=== PATIENT | female | born 1990 | race Caucasian/White ===

== ENCOUNTER 2020-07-26 08:21 | Inpatient (IN) ==
[2020-07-26] MEDS ORDERED: OXYTOCIN 30 UNITS/500 ML BAG IV PRN ×2 (09:35→22:31)
--- NOTE | 2020-07-26 09:38 | History & Physical Report ---
Date of Service July 26, 2020 Assessment & Plan (1) Encounter for supervision in primigravida, antepartum: Admit to L&D. EFM/toco. Labs, Covid swab per protocol. OK for pitocin if needed. OK for epidural when she desires. History of Present Illness Chief Complaint: labor Primary Care Provider: Stephane Marlow MD 29yo @ 40 4/7, contractions increased overnight. No ROM. Scant blood in vaginal mucus. +FM. H/o ectopic . Allergies Allergy/AdvReac Type Severity Reaction Status Date / Time latex Allergy Unknown Unknown Verified 07/26/20 08:35 Home Medications Medication Instructions Recorded Confirmed Type lactobacillus combination no.4 0 mmu cells PO DAILY 07/12/19 07/26/20 History [Probiotic] prenat.vits,vijaya,[id number] 1 tab PO DAILY 09/12/19 07/26/20 History valacyclovir 1 gram tablet 2,000 mg PO BID 1 Days #12 tab 05/03/20 07/26/20 Rx loratadine 10 mg tablet 10 mg PO DAILY PRN #30 tab 06/13/20 07/26/20 Rx pantoprazole 40 mg tablet,delayed 40 mg PO DAILY PRN #30 tab 06/13/20 07/26/20 Rx release Patient History Medical History Ectopic 2019 Establishing care with new doctor, encounter for GERD (gastroesophageal reflux disease) Varicella vaccination Surgical History [id number] H/O oral surgery Tooth extraction History of back surgery Family History Mother Breast cancer Grandmother (Paternal) Crohn's disease Grandmother (Maternal) Diabetes Father Dyslipidemia Denies family history of Ovarian cancer Prostate cancer Myocardial infarction Colorectal cancer Social History (Updated 06/13/20 @ 10:16 by Jaspreet Marlow MD) Smoking Status: Never smoker Second Hand Exposure: No; Hx Alcohol Use: Yes Hx Substance Use: No Preferred Language: Setswana Visual Impairment: No Limitations Hearing Ability: Normal Beliefs That Will Affect Care: None marital status: marital status details: David Alcala II (29) [phone] Current Living Situation: Spouse Current Living Situation Comment: lives with spouse, no pets current occupational status: unemployed Feels Safe at Home: Yes Safety Concerns: Feels Safe At This Time Childhood Exposure to Second-Hand Smoke: No caffeine: No Dental Care, Regularly: Yes Physical Activity Frequency: 3-4 Times per Week Seatbelt Use: sometimes Sunscreen Use: Yes Assistive Devices: Glasses Review of Systems All systems reviewed & are unremarkable except as noted in HPI & below Physical Exam Physical Exam: SVE 6/90/0 FHT Cat 1 [place] Q 2-3 Constitutional: WD/WN, vitals as above Respiratory: normal respiratory effort, lungs clear to auscultation no respiratory distress Cardiovascular: Rate/Rhythm: regular rate and regular rhythm Gastrointestinal (Abdomen): Inspection/Auscultation: abdomen normal to inspection Percussion/Palpation: abdomen soft; abdomen nontender Gravid. No s/s chorio or abruption. Skin: no rashes, warm and dry Psychiatric: A+Ox3, euthymic affect Results & Data ([facility]) Vital Signs (Past 12 Hours) Vital Signs Temp Pulse Resp BP 07/26/20 08:33 36.6 C 18 07/26/20 08:27 66 116/67 Coding Level of Care Code None Diagnoses Encounter for supervision in primigravida, antepartum Z34.00
[2020-07-26] MEDS: LACTATED RINGER'S 1,000 ML IV PRN ×3 (09:55→15:30)
[2020-07-26] MEDS ORDERED: ePHEDrine sulfate 50 MG/ML AMP ONE (09:56)
[2020-07-26] MEDS ORDERED: BUPIVACAINE 0.25% 30 ML VIAL ONE ×2 (09:56→09:59)
[2020-07-26] MEDS ORDERED: SODIUM CHLORIDE 0.9% INJ 10 ML VIAL ONE (09:56)
[2020-07-26] MEDS ORDERED: fentaNYL 2MCG/ML ROPIVACAINE 1.25MG/ML 100 ML BAG EPI ONE (09:57)
[2020-07-26] MEDS ORDERED: fentaNYL citrate 100 MCG/2 ML VIAL ONE (09:57)
[2020-07-26 10:04] LABS: Hematocrit (blood only) 37.8 % (37-47); Mean Corpuscular Hemoglobin 30.2 pg (25-34); Mean Corpuscular Hgb Conc 34.4 g/dL (32-36); Mean Corpuscular Volume 87.9 fL (80-100); Mean Platelet Volume 10.2 fL (7.4-10.4); Platelet Count 136 K/uL (130-400); RDW Coefficient of Variation 13.3 % (11.5-14.5); RDW Standard Deviation 42.7 fL (36.4-46.3); White Blood Count 8.72 K/uL (4.8-10.8)
[2020-07-26] MEDS ORDERED: ONDANSETRON INJ 2 MG/ML 2 ML VIAL IV PRN (10:30)
[2020-07-26] MEDS ORDERED: NALOXONE HCL 0.4 MG/1 ML VIAL/CARP IV PRN (10:30)
[2020-07-26] MEDS ORDERED: diphenhydrAMINE 50 MG/ML VIAL IV PRN (10:30)
[2020-07-26] MEDS ORDERED: NALOXONE HCL 1 MG in SODIUM CHLORIDE 0.9% 1000ML 1,000 ML IV PRN (10:30)
[2020-07-26] MEDS ORDERED: fentaNYL 2MCG/ML ROPIVACAINE 1.25MG/ML 100 ML BAG EPI PRN (10:30)
[2020-07-26] MEDS ORDERED: ePHEDrine sulfate 50 MG/ML AMP IV PRN (10:30)
--- NOTE | 2020-07-26 10:35 | Anesthesiology Consultation ---
Date of Service July 26, 2020 Assessment & Plan Chart Review Chart Review: Patient NOT seen in Pre Admission Testing and Acceptable Risk for Labor Epidural Consults Requested none ASA ASA2 Proposed Anesthesia Anesthesia Type: Labor Epidural and CSE Risk / Benefits Reviewed With: PT / POA / Parent / Guardian, Accepts Plan and Informed Consent Obtained History Height/Weight Height: 5 ft 4 in Weight: 74.843 kg Allergies Allergy/AdvReac Type Severity Reaction Status Date / Time latex Allergy Unknown Unknown Verified 07/26/20 08:35 Medications Home Medications Medication Instructions Recorded Confirmed Last Taken lactobacillus combination no.4 0 mmu cells PO DAILY 07/12/19 07/26/20 07/25/20 07:00 [Probiotic] prenat.vits,vijaya,[id number]-hlpra 1 tab PO DAILY 09/12/19 07/26/20 07/25/20 07:00 valacyclovir 1 gram tablet 2,000 mg PO BID 1 Days #12 tab 05/03/20 07/26/20 07/25/20 loratadine 10 mg tablet 10 mg PO DAILY PRN #30 tab 06/13/20 07/26/20 07/25/20 07:00 pantoprazole 40 mg tablet,delayed 40 mg PO DAILY PRN #30 tab 06/13/20 07/26/20 07/25/20 07:00 release Active Medications Generic Name Dose Route Start Last Admin Trade Name Freq PRN Reason Stop Dose Admin Lactated Ringer's 1,000 mls @ 125 mls/hr 07/26/20 09:35 07/26/20 09:55 Lr IV 07/28/20 09:34 999 mls/hr .Q8H PRN Administration L&D Protocol Protocol NPO Date Last Intake of Fluids: 07/26/20 Time Last Intake of Fluids: 08:30 Date Last Intake of Solids: 07/25/20 Time Last Intake of Solids: 19:00 Past Medical History Medical History Ectopic 2019 Establishing care with new doctor, encounter for GERD (gastroesophageal reflux disease) Varicella vaccination Exercise / Class Metabolic Activity II 4-5 Yardwork/Stairs/Walk up hill Past Family History Family History Mother Breast cancer Grandmother (Paternal) Crohn's disease Grandmother (Maternal) Diabetes Father Dyslipidemia Denies family history of Ovarian cancer Prostate cancer Myocardial infarction Colorectal cancer Past Surgical History Surgical History [id number] [place] H/O oral surgery Tooth extraction History of back surgery Past Anesthesia History No Hx of Anesthesia Complications and No Family Hx of Anesthesia Complications History of PONV No Hx of PONV and No Hx of Motion Sickness Social History Smoking Status: Never smoker Hx Alcohol Use: Yes Hx Substance Use: No substance use type: does not use Review of Systems no chest pain or sob Physical Exam Vital Signs Last Vital Signs Temp 36.6 C 07/26/20 08:33 Pulse 96 H 07/26/20 10:33 Resp 18 07/26/20 08:33 BP 116/67 07/26/20 08:27 Pulse Ox 93 07/26/20 10:33 ENMT Mouth: no TMJ abnormality Thyromental Distance: > or= 3.5 Finger Breadths Mallampati Class: II Neck normal visual inspection Respiratory normal respiratory effort Auscultation: lungs clear to auscultation bilaterally Cardiovascular Rate/Rhythm: regular rate and regular rhythm Musculoskeletal Spine: normal cervical ROM Neurologic moves all extremities Psychiatric Orientation: alert and oriented x 3 Testing Laboratory Results 07/26/20 09:45
--- NOTE | 2020-07-26 13:56 | Labor Progress Brief Note ---
Date of Service July 26, 2020 Subjective Comfortable with epidural. AROM clear fluid. FHT Cat 1 [place] Q 2-3 SVE 7/100/0 Continue labor Assessment & Plan Admission and Anticipated Discharge Date Admission Date: July 26, 2020 Results & Data ([facility]) Vital Signs (Past 12 Hours) Vital Signs Temp Pulse Resp BP Pulse Ox 07/26/20 13:51 73 98 07/26/20 13:46 78 98 07/26/20 13:45 102 H 106/67 07/26/20 13:41 114 H 98 07/26/20 13:36 112 H 98 07/26/20 13:31 108 H 98 07/26/20 13:29 98 H 106/64 07/26/20 13:26 81 97 07/26/20 13:21 118 H 97 07/26/20 13:16 105 H 99 07/26/20 13:15 97 H 101/63 07/26/20 13:11 36.4 C L 84 18 96 07/26/20 13:06 87 97 07/26/20 13:01 96 H 98 07/26/20 12:59 112 H 97/55 L 07/26/20 12:56 87 98 07/26/20 12:51 94 H 97 07/26/20 12:46 97 H 97 07/26/20 12:44 86 103/59 L 07/26/20 12:41 85 97 07/26/20 12:36 79 96 07/26/20 12:31 110 H 94 07/26/20 12:29 91 H 113/60 87 L 07/26/20 12:26 92 H 94 07/26/20 12:21 95 H 92 07/26/20 12:16 110 H 95 07/26/20 12:15 111 H 107/61 07/26/20 12:14 78 88 L 07/26/20 12:11 116 H 93 07/26/20 12:06 128 H 95 07/26/20 12:01 98 H 91 07/26/20 11:59 114 H 103/62 07/26/20 11:56 111 H 94 07/26/20 11:51 73 95 07/26/20 11:46 112 H 94 07/26/20 11:45 107 H 103/63 07/26/20 11:41 89 94 07/26/20 11:36 106 H 91 07/26/20 11:31 101 H 92 07/26/20 11:30 20 07/26/20 11:27 80 118/69 07/26/20 11:26 97 H 96 07/26/20 11:21 68 122/62 95 07/26/20 11:19 65 118/69 07/26/20 11:16 74 119/58 L 07/26/20 11:15 20 07/26/20 11:13 68 119/64 07/26/20 11:11 98 H 122/78 95 07/26/20 11:09 98 H 121/65 07/26/20 11:07 103 H 116/67 07/26/20 11:06 107 H 96 07/26/20 11:05 119/71 07/26/20 11:03 67 124/71 07/26/20 11:01 75 119/68 97 07/26/20 11:00 36.8 C 20 07/26/20 10:59 64 136/73 07/26/20 10:56 114 H 100 07/26/20 10:54 93 H 93/54 L 07/26/20 10:53 93 H 71/47 L 07/26/20 10:51 95 H 98/59 L 94 07/26/20 10:49 88 103/65 07/26/20 10:47 81 18 110/62 07/26/20 10:46 83 95 07/26/20 10:41 83 96 07/26/20 10:36 109 H 90 07/26/20 10:33 96 H 93 07/26/20 10:31 73 96 07/26/20 10:27 87 92 07/26/20 10:26 75 98 07/26/20 10:21 81 96 07/26/20 10:16 71 97 07/26/20 10:11 70 99 07/26/20 10:06 78 99 07/26/20 08:33 36.6 C 18 07/26/20 08:27 66 116/67 Coding Level of Care Code None
[2020-07-26] MEDS ORDERED: METHYLERGONOVINE MALEATE 0.2 MG/ML AMP ONE (21:36)
--- NOTE | 2020-07-26 21:58 | Delivery Summary ---
Vaginal Delivery Summary Date of Service July 26, 2020 Vaginal Delivery Summary [facility] Vaginal Delivery Summary: Pre-delivery diagnoses: 29yo @ 42 05/30, spontaneous labor Post-delivery diagnoses: same Procedure: spontaneous vaginal delivery Surgeon: Mechelle Jung DO Complications: none Findings: Viable male . Apgars: 7/9 . Weight pending, please see nursery records Estimated blood loss: 300ml Description of delivery: The patient progressed to complete with epidural anesthesia. She then began to push. She spontaneously vaginally delivered a viable from the cephalic presentation. The head delivered in BEAU position. The anterior shoulder delivered, followed by the posterior shoulder, followed by the body. The baby was placed on mother's abdomen and a spontaneous cry was heard. Delayed cord clamping was employed, and the cord was doubly clamped and cut. Cord blood was obtained. The placenta was delivered spontaneously intact with a 3-vessel cord. The uterus and vagina were swept of clots and debris. IV pitocin was given. The uterus was initially boggy, and methergine was given, and then became firm. The cervix, vagina, and perineum were inspected and a left vaginal laceration was repaired with 3-0 vicryl. Excellent hemostasis was observed. The mother and baby are recovering in stable and good condition in the room. Sponge, needle and instrument counts were correct x 2. Mechelle Jung DO [facility] Vaginal Delivery Charge Vaginal Delivery Codes: 63501 global code for the antepartum, delivery, and post- Delivery Type Details: [facility]
[2020-07-26] MEDS ORDERED: HYDROCORTISONE ACETATE 25 MG SUPP PR PRN (22:31)
[2020-07-26] MEDS ORDERED: BENZOCAINE 20% AER SPR 82.5 GM CAN EXT PRN (22:31)
[2020-07-26] MEDS ORDERED: oxyCODONE/ACETAMINOPHEN 5mg/325mg TAB PO PRN (22:31)
[2020-07-26] MEDS ORDERED: SUPERCREAM 0.870% 15 GM JAR EXT PRN (22:31)
[2020-07-26] MEDS ORDERED: DIPHTHERIA/TETANUS/PERTUSSIS 0.5 ML SYR/VIAL IM ONE (22:31)
[2020-07-26] MEDS ORDERED: METHYLERGONOVINE MALEATE 0.2 MG/ML AMP IM ONE (22:31)
[2020-07-26] MEDS ORDERED: bisacodyL 10 MG SUPP PR PRN (22:31)
[2020-07-26] MEDS: IBUPROFEN 600 MG TAB PO PRN (23:55)
--- NOTE | 2020-07-27 00:31 | Anesthesia Procedure Note ---
Date of Service July 27, 2020 Anesthesia Post Epidural Note Vital Signs Vital Signs: Temp Pulse Resp BP Pulse Ox 36.7 C 100 H 18 113/55 L 95 07/26/20 22:45 07/26/20 23:45 07/26/20 23:15 07/26/20 23:45 07/26/20 21:51 Pain Intensity Bilateral Abdomen: Pain Intensity: 3 Notes Mental Status: alert / awake / arousable and participated in evaluation Nausea / Vomiting: adequately controlled Pain: adequately controlled Airway Patency, RR, SpO2: stable & adequate BP & HR: stable & adequate Hydration State: stable & adequate Neuraxial Anesthesia: was administered and sensory block is resolving Anesthetic Complications: no major complications apparent and Pt Satisfied with anesthetic care Epidural: Removed without complications and With tip intact
[2020-07-27] MEDS: IBUPROFEN 600 MG TAB PO PRN ×4 (05:26→20:34)
--- NOTE | 2020-07-27 06:02 | Obstetrical Progress Note ---
Date of Service July 27, 2020 Assessment & Plan (1) Encounter for supervision in primigravida, antepartum: PPD#1 doing well, no concerns. Desires DC home tomorrow. Subjective Ambulation: ambulating normally Voiding: no voiding problems Diet Tolerance:: regular diet Lochia:: Moderate Feeding Type:: breast feeding PPD#1 doing well. Review of Systems All systems reviewed & are unremarkable except as noted in HPI & below Physical Exam Constitutional WD/WN, vitals as above no acute distress Respiratory normal respiratory effort Cardiovascular Rate/Rhythm: regular rate and regular rhythm Gastrointestinal (Abdomen) Inspection/Auscultation: abdomen normal to inspection; abdomen not distended Percussion/Palpation: abdomen soft Genitourinary OB Exam Abdomen: + fundal height Fundus: + firm; not tender Results & Data ([facility]) Vital Signs (Past 12 Hours) Vital Signs Temp Pulse Pulse Resp BP BP Pulse Ox 07/27/20 05:20 36.7 C 86 17 102/66 97 07/27/20 00:45 36.9 C 92 H 16 109/72 96 07/26/20 23:45 36.9 C 100 H 18 113/55 L 07/26/20 23:31 112 H 119/56 L 07/26/20 23:15 98 H 18 119/62 07/26/20 23:00 107 H 116/72 07/26/20 22:45 36.7 C 95 H 18 120/70 07/26/20 22:31 105 H 116/70 07/26/20 22:30 18 07/26/20 22:15 18 07/26/20 22:00 115 H 18 111/66 07/26/20 21:51 91 H 95 07/26/20 21:46 102 H 96 07/26/20 21:45 36.9 C 99 H 18 110/61 07/26/20 21:44 100 H 119/62 07/26/20 21:41 104 H 97 07/26/20 21:36 99 H 99 07/26/20 21:31 106 H 97 07/26/20 21:29 96 H 121/77 07/26/20 21:26 120 H 97 07/26/20 21:21 167 H 98 07/26/20 21:16 88 97 07/26/20 21:11 93 H 97 07/26/20 21:06 93 H 99 07/26/20 21:01 80 98 07/26/20 20:59 93 H 18 121/73 07/26/20 20:56 77 98 07/26/20 20:51 86 98 07/26/20 20:46 102 H 98 07/26/20 20:45 80 118/66 07/26/20 20:41 100 H 98 07/26/20 20:36 85 99 07/26/20 20:31 81 98 07/26/20 20:30 110 H 108/68 07/26/20 20:26 105 H 98 07/26/20 20:21 79 99 07/26/20 20:16 114 H 98 07/26/20 20:15 36.9 C 18 07/26/20 20:14 91 H 117/65 07/26/20 20:11 73 99 07/26/20 20:06 80 98 07/26/20 20:01 90 99 07/26/20 20:00 81 117/65 07/26/20 19:56 78 98 07/26/20 19:51 76 98 07/26/20 19:46 90 99 07/26/20 19:44 75 119/68 07/26/20 19:41 113 H 97 07/26/20 19:36 75 98 07/26/20 19:31 76 98 07/26/20 19:30 75 119/67 07/26/20 19:26 78 99 07/26/20 19:21 76 99 07/26/20 19:16 71 100 07/26/20 19:15 79 115/70 07/26/20 19:11 87 99 07/26/20 19:10 93 H 88 L 07/26/20 19:06 93 H 99 07/26/20 19:01 36.7 C 81 18 100 07/26/20 19:00 97 H 128/68 07/26/20 18:56 76 99 07/26/20 18:51 80 99 07/26/20 18:48 79 83 L 07/26/20 18:46 96 H 99 07/26/20 18:44 80 120/70 07/26/20 18:41 80 99 07/26/20 18:36 98 H 99 07/26/20 18:31 115 H 95 07/26/20 18:30 18 07/26/20 18:26 107 H 100 07/26/20 18:21 92 H 98 07/26/20 18:16 101 H 99 07/26/20 18:15 96 H 112/71 07/26/20 18:11 96 H 100 07/26/20 18:06 103 H 99
[2020-07-27 07:11] LABS: Hematocrit (blood only) 31.2 % (37-47); Hemoglobin 10.5 g/dL (12.0-16.0)
[2020-07-27] MEDS: DOCUSATE SODIUM 100 MG CAP PO SCH ×2 (08:51→20:34)
[2020-07-27] MEDS: PRENATAL VITAMIN 1 TAB PO SCH (08:51)
[2020-07-27] MEDS: LORATADINE 10 MG TAB PO PRN (08:51)
[2020-07-27] MEDS: ACETAMINOPHEN 325 MG TAB PO PRN ×3 (08:52→23:38)
[2020-07-27] MEDS ORDERED: bisacodyL 5 MG TABEC PO SCH (20:00)
[2020-07-28] MEDS: IBUPROFEN 600 MG TAB PO PRN ×3 (02:36→15:10)
--- NOTE | 2020-07-28 07:23 | Obstetrical Progress Note ---
Date of Service July 28, 2020 Assessment & Plan (1) state: Patient is day #1.5 she is doing well no depression breast- feeding well plan for discharge later today reviewed discharge planning no extremity pain Subjective Ambulation: ambulating normally Voiding: no voiding problems Passing Gas:: Yes Diet Tolerance:: regular diet Lochia:: Small Feeding Type:: breast feeding Current Pain Level(1-10): 1 Results & Data ([facility]) Vital Signs (Past 12 Hours) Vital Signs Temp Pulse Resp BP 07/27/20 23:30 97.9 F 79 18 107/67 07/27/20 20:10 98.4 F 76 18 102/76
[2020-07-28] MEDS: LORATADINE 10 MG TAB PO PRN (07:58)
[2020-07-28] MEDS: ACETAMINOPHEN 325 MG TAB PO PRN (07:58)
[2020-07-28] MEDS: DOCUSATE SODIUM 100 MG CAP PO SCH (08:00)
[2020-07-28] MEDS: PRENATAL VITAMIN 1 TAB PO SCH (08:00)
== END 2020-07-28 18:10 | disposition home or self-care (01) | DRG 807 ==
LOC: OPB 08:21 → 4S1 08:22 → 4S2 07-27 00:40